=== PATIENT | male | born 1950 | race Caucasian/White ===

== ENCOUNTER 2019-12-10 15:58 | Outpatient (CLI) | payer MEDICARE, SELFPAY ==
--- NOTE | ~2019-12-10 | CT_ITS ---
EXAMINATION: CT lung screening EXAM DATE: 12/10/2019 16:32 INDICATION: Personal history of nicotine dependence. TECHNIQUE: Spiral low dose CT of the chest without contrast. Axial, coronal and sagittal images were reviewed. The dose-length product (DLP) for this examination was 136.04 mGy-cm. The exposure was t ailored according to patient size (auto mA exposure control), and iterative reconstruction (ASIR) was used as additional dose reduction technique. There is no prior study for comparison. FINDINGS: The lungs are clear. Tracheobronchial tree is patent. There is no mediastinal, hilar o r axillary lymphadenopathy. There are no pleural or pericardial effusions. There is no pneumothor ax. Heart normal in size. There is mild coronary arterial calcification, arterial sclerosis. Bernardo ateral adrenal adenomas. Fluid density lesion superior pole left kidney measuring 3.7 cm consistent w ith cyst. Cholecystectomy clips. Probable Niesen fundoplication. There is mild thoracic spondylosis without osteoblastic or osteolytic lesions identified. Cervical fusion hardware. IMPRESSION: Lung-RADS category 1, negative (<1%chance of malignancy); recommend continued LDCT screen ing in 1 year. > Reviewed, dictated and finalized at location A. 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 >
== END 2019-12-10 15:59 | disposition home or self-care (01) ==
LOC: ANHIMG 16:01
PROVIDERS: PCP Nurse Practitioner; Visit Provider Nurse Practitioner
DX: Z12.2 Encounter for screening for malignant neoplasm of respiratory organs (principal); Z87.891 Personal history of nicotine dependence
CPT/HCPCS: G0297

== ENCOUNTER → 2020-04-20 15:14 | Outpatient (CLI) | payer MEDICARE, SELFPAY ==
--- NOTE | ~2020-04-20 | MR_ITS ---
EXAMINATION: MR cervical spine wo con DATE: 04/20/2020 16:14 INDICATION: Left arm pain. TECHNIQUE: Magnetic resonance imaging (MRI) of the cervical spine was performed without intravenous c ontrast. Sequences included sagittal T2-weighted FSE, sagittal STIR FSE, sagittal T1-weighted FSE, ax ial MERGE, and axial T2-weighted FSE. COMPARISON: None FINDINGS: There is 2 mm anterolisthesis of C3 on C4 and 2 mm retrolisthesis of C4 on C5. Vertebral jorge dy heights are normal. There are changes of anterior fusion procedure at C6-C7 with healed interbody bone graft and anterior plate and screws. There is moderately decreased disc height at C4-C5. The spi nal cord signal intensity is normal. The following disc levels are specifically discussed: C2-C3: The disc does not extend beyond the endplate margin. There is mild bilateral uncovertebral nasim nt osteoarthritis. There is mild bilateral facet joint osteoarthritis. There is mild right neural for aminal stenosis. There is no central canal stenosis. C3-C4: There is a central extrusion. There is mild bilateral uncovertebral joint osteoarthritis. Ther e is mild right and severe left facet joint osteoarthritis. There is mild right and moderate left herbert ral foraminal stenosis. There is mild central canal stenosis. C4-C5: The disc is bulging with superimposed right central extrusion. There is moderate bilateral unc overtebral joint osteoarthritis. There is moderate right and mild left facet joint osteoarthritis. Th ere is moderate bilateral neural foraminal stenosis. There is moderate central canal stenosis with ve ntral and dorsal indentation of spinal cord. C5-C6: The disc is bulging with superimposed right central extrusion. There is no uncovertebral joint osteoarthritis. There is mild right and severe left facet joint osteoarthritis. There is mild left n eural foraminal stenosis. There is mild central canal stenosis with ventral indentation of spinal cor d. C6-C7: There is mild bilateral uncovertebral joint hypertrophy. There is mild bilateral facet joint o steoarthritis. There is mild right neural foraminal stenosis. There is no central canal stenosis. C7-T1: The disc does not extend beyond the endplate margin. There is no uncovertebral joint osteoarth ritis. There is severe right and mild left facet joint osteoarthritis. There is mild right neural for aminal stenosis. There is no central canal stenosis. IMPRESSION: 1. Moderate cervical spondylosis. 2. Anterior fusion procedure at C6-C7. Reviewed, dictated and finalized at location A.
== END ==
PROVIDERS: Visit Provider Clinical Nurse Specialist
DX: M79.602 Pain in left arm (principal); M47.892 Other spondylosis, cervical region; Z98.1 Arthrodesis status
CPT/HCPCS: 72141

== ENCOUNTER 2020-06-09 14:00 | Outpatient (CLI) | payer MEDICARE, SELFPAY ==
--- NOTE | ~2020-06-09 | CT_ITS ---
EXAMINATION: CT abdomen pelvis wo/w con DATE: 06/09/2020 14:46 INDICATION: Status post stent for abdominal aortic dissection TECHNIQUE: Computed tomography (CT) of the abdomen was performed without and subsequently with 100 cc Omnipaque 350 intravenous contrast. Automated exposure control and iterative reconstruction technique were employed. Exam dose: 1154.77 mGy-cm total exam DLP. COMPARISON: None. FINDINGS: The lung bases are clear of infiltrate or consolidation. Normal heart size. Coronary artery calcifications. No pericardial or pleural effusion. Small sliding hiatal hernia. Surgical clips adjacent to the very proximal stomach. Status post cholecystectomy. No hepatic or splenic space-occupying mass lesion is evident. No bile duct dilatation. Pancreas and calcifications consistent with chronic pancreatitis. No pancreatic mass lesion or ductal dilatation is detected. There are bilateral low attenuation adrenal masses, measuring approximately 17 mm on the right, 19 mm on the left. In the absence of any known primary malignancy, these are likely adrenal adenomas. 4 x 4.3 cm upper pole left renal cyst. Additional occasional bilateral smaller renal cysts. No urinary tract calculus or hydroureteronephrosis is evident. There is an infrarenal abdominal aortic endovascular stent there is atherosclerotic calcification of the abdominal aorta and at the origins of the celiac and superior mesenteric and both renal arteries as well as the common iliac arteries. Mild residual distal abdominal aortic dissection is noted beyond the aortic endovascular stent. Arterial dissections are noted in the proximal common iliac arteries, more prominent on the left. No intraperitoneal or retroperitoneal mass lesion or adenopathy or ascites is evident. Mild colonic diverticulosis; no bowel obstruction or intraperitoneal free air is detected. Bilateral L5 pars interarticularis defects with anterolisthesis at L5-S1. IMPRESSION: Small sliding hiatal hernia Status post cholecystectomy Chronic pancreatitis Probable bilateral adrenal adenomas Bilateral renal cysts Infrarenal abdominal aortic endovascular stent Minimal distal abdominal aortic dissection and bilateral left greater than right common iliac artery dissection Mild colonic diverticulosis Bilateral L5 spondylolysis with associated spondylolisthesis at L5-S1 Reviewed, dictated and finalized at Location A. Reviewed, dictated and finalized at location A. MTDD IMPRESSION: Small sliding hiatal hernia Status post cholecystectomy Chronic pancreatitis Probable bilateral adrenal adenomas Bilateral renal cysts Infrarenal abdominal aortic endovascular stent Minimal distal abdominal aortic dissection and bilateral left greater than righ t common iliac artery dissection Mild colonic diverticulosis Bilateral L5 spondylolysis with associated spondylolisthesis at L5-S1
[2020-06-09 14:36] LABS: Estimated Glomerular Filt Rate > 60
== END 2020-06-09 14:01 | disposition home or self-care (01) ==
PROVIDERS: PCP Internal Medicine Cardiovascular Disease; Visit Provider Internal Medicine Cardiovascular Disease
DX: I71.02 Dissection of abdominal aorta (principal)
CPT/HCPCS: 74170; 74178; Q9967

== ENCOUNTER 2020-10-13 16:08 | Outpatient (CLI) | payer MEDICARE, SELFPAY ==
--- NOTE | ~2020-10-13 | MR_ITS ---
EXAMINATION: MR lumbar spine wo [facility] EXAM DATE: 10/13/2020 17:01 INDICATION: Low back pain. TECHNIQUE: Multi-sequential, multiplanar MR images of the lumbar spine were obtained without contrast . Sagittal T1, T2, T2 fat saturation images. Axial T2 weighted images. There is no prior study for comparison. FINDINGS: There is chronic bilateral L5 spondylolysis with 6 cm anterolisthesis L5 on S1. There is 2 mm retrolisthesis L4 on L5. Moderate L5-S1 disc disease, mild at the other thoracolumbar levels image d. The conus medullaris terminates at the L1/2 level and has normal signal intensity and morphology. There are no focal marrow signal abnormalities suspicious for malignancy or acute fracture. Paraspin al soft tissue is unremarkable. Level by level evaluation: T12-L1: Disc does not extend beyond the endplate margin. Facet arthropathy: None. Neural foraminal stenosis: No stenosis. Central canal stenosis: No stenosis. L1-L2: There is a mild diffuse disc bulge. Facet arthropathy: Mild. Neural foraminal stenosis: No stenosis. Central canal stenosis: No stenosis. L2-L3: There is a mild diffuse disc bulge. Facet arthropathy: Mild. Neural foraminal stenosis: Mild bilateral. Central canal stenosis: No stenosis. L3-L4: There is a mild to moderate diffuse disc bulge. Facet arthropathy: Mild. Neural foraminal stenosis: Mild bilateral. Central canal stenosis: No stenosis. L4-L5: There is a mild to moderate diffuse disc bulge. Facet arthropathy: Moderate right, mild left. Neural foraminal stenosis: Moderate right, mild to moderate left. Central canal stenosis: No stenosis. L5-S1: There is a moderate diffuse disc bulge. Facet arthropathy: Mild. Neural foraminal stenosis: Moderate to severe right, moderate left. Central canal stenosis: Mild. IMPRESSION: 1. L5 chronic bilateral spondylolysis, grade 1 anterolisthesis, moderate disc disease. 2. Lower lumbar predominant spondylosis as above. Reviewed, dictated and finalized at location A. 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
== END 2020-10-13 16:09 | disposition home or self-care (01) ==
PROVIDERS: PCP Internal Medicine; Visit Provider Nurse Practitioner
DX: M47.896 Other spondylosis, lumbar region (principal)
CPT/HCPCS: 72148

== ENCOUNTER 2021-02-03 12:12 | Outpatient (CLI) | payer MEDICARE, SELFPAY ==
--- NOTE | ~2021-02-03 | CT_ITS ---
EXAMINATION:CT lung screening DATE: 02/03/2021 12:49 INDICATION: Personal history of tobacco dependence. Current smoker with 30 pack year history. TECHNIQUE: Computed tomography (CT) of the chest was performed without intravenous contrast. Automate d exposure control and iterative reconstruction technique were employed. The dose-length product (DLP ) was 207.33 mGy-cm. COMPARISON: Chest CT 12/10/2019 FINDINGS: There is mild emphysema. Calcified left lung nodules and calcified left hilar and mediastin al lymph nodes are consistent with old granulomatous disease. No pleural effusion. The heart size is normal. There are coronary artery calcifications. No pericardial effusion. There are calcifications i n the pancreas, consistent with chronic pancreatitis. There is a 4.9 cm cyst of left kidney. There ar e changes of anterior fusion procedure in cervical spine. IMPRESSION: 1. Lung-RADS category 1: Negative. Continue annual screening with noncontrast low-dose chest CT in 12 months. Reviewed, dictated and finalized at location A. IMPRESSION: 1. Lung-RADS category 1: Negative. Continue annual screening with noncontrast l ow-dose chest CT in 12 months.
== END 2021-02-03 12:13 | disposition home or self-care (01) ==
PROVIDERS: PCP Internal Medicine; Visit Provider Clinical Nurse Specialist
DX: Z87.891 Personal history of nicotine dependence (principal)
CPT/HCPCS: 71271

== ENCOUNTER 2021-02-17 18:05 | Emergency (ER) | payer MEDICARE, SELFPAY ==
[2021-02-17] VITALS (30 sets, daily range): BP systolic 81–139; BP diastolic 57–91; PULSE 58–74; RESP 16–29; TEMP 36.9; O2SAT 94–98
--- NOTE | ~2021-02-17 | CT_ITS ---
EXAMINATION: CT abdomen pelvis w con EXAM DATE: 02/17/2021 19:57 INDICATION: Left upper abdominal pain. History kidney stone. TECHNIQUE: Spiral CT of the abdomen and pelvis was performed following intravenous injection of 100 m L Omnipaque 350. Axial, coronal and sagittal images of the abdomen and pelvis were reviewed. The do se-length product (DLP) for this examination was 1151.33 mGy-cm. The exposure was tailored according to patient size (auto mA exposure control), and iterative reconstruction (ASIR) was used as addition al dose reduction technique. Comparison is made to prior examination from 06/09/2020. FINDINGS: Bilateral adrenal adenomas up to about 2 cm. Pancreatic calcifications, chronic pancreatiti s. The liver, spleen, adrenal glands and pancreas are otherwise unremarkable. There are cholecystec liliana clips. The portal vein measures up to 2.2 cm in diameter, could indicate portal hypertension. No liver surface nodularity. Portal and splenic veins are patent. Kidneys enhance symmetrically. The re is no hydronephrosis. Exophytic left renal cyst measuring 4.4 cm. Mild prostatomegaly. The bladd er is unremarkable. There is no retroperitoneal or pelvic lymphadenopathy. Abdominal aortic stent, a marvin is normal in caliber. There is moderate scattered arteriosclerotic disease. The appendix is not positively visualized. There is no pericecal inflammatory change to suggest appe ndicitis. There is moderate sigmoid colonic diverticulosis. There is no adjacent inflammatory change to suggest diverticulitis. Surgical changes consistent with Niesen fundoplication. There is expecte d amount of colonic stool. No free intraperitoneal gas. The heart is normal in size. There are n o pericardial or pleural effusions. The lung bases are unremarkable. Chronic L5 spondylolysis with grade 1 anterolisthesis L5 on S1. There are no osteoblastic or osteolytic lesions identified. IMPRESSION: 1. No acute intra-abdominal findings or interval change. 2. Dilated portal vein, could indicate portal hypertension. 3. Chronic pancreatitis. 4. Moderate sigmoid diverticulosis. 5. Chronic L5 spondylolysis, grade 1 anterolisthesis. 6. Surgical changes. Reviewed, dictated and finalized at location A.
--- NOTE | 2021-02-17 18:36 | ECG_ITS ---
Measurements Intervals [place] Rate: 63 P: 32 VT: 187 QRS: 5 QRSD: 103 T: 40 QT: 425 QTc: 436 Interpretive Statements SINUS RHYTHM VENTRICULAR PREMATURE COMPLEX INCOMPLETE RIGHT BUNDLE BRANCH BLOCK DELAYED PRECORDIAL R/S TRANSITION BASELINE ARTIFACT- I, II, III, AVR, AVF, V1-V6 BORDERLINE ECG Electronically Signed On 02-18-2021 6:40:18 CDT by Arnie Mercer D.O.
[2021-02-17] MEDS: SODIUM CHLORIDE 0.9% IV 1,000 ML 999 ML IV CONT (18:55)
--- NOTE | 2021-02-17 19:13 | ED.GENADULT ---
HPI - General Adult General Chief complaint: Back Pain/Injury Stated complaint: abd pain, tingling Time Seen by Provider: 02/17/21 18:23 History of Present Illness HPI narrative: Patient is a 71-year-old male who presents ER with abdominal pain and syncope. Patient reports he was at home talking to his [id number] when he started having crampy upper abdominal pain. He decided to go into the bathroom because he thought he needed use of a bowel movement. Reports he did not have a bowel movement but then he began to feel tingly all over. He reports his told him that he lost consciousness but he is unsure if this is true. He is still having some abdominal cramping. Reports history of endovascular repair of a AAA several years back. Reports he had some mild chest discomfort that may have been related to the pressure in his abdomen. This is since gone away. No nausea/vomiting. Related Data Home Medications Medication Instructions Recorded Confirmed cyanocobalamin (vitamin B-12) 1,000 mcg PO DAILY 12/04/19 01/07/21 1,000 mcg capsule dapagliflozin 10 mg tablet 10 mg PO DAILY 12/04/19 01/07/21 fenofibrate micronized 134 mg 134 mg PO DAILY 12/04/19 01/07/21 capsule ranolazine 1,000 mg 1,000 mg PO Q12H 12/04/19 01/07/21 tablet,extended release,12 hr aspirin 81 mg tablet,delayed 81 mg PO DAILY 06/08/20 01/07/21 release alfuzosin 10 mg tablet,extended 20 mg PO BID tablet 01/07/21 01/07/21 release 24 hr Allergies Allergy/AdvReac Type Severity Reaction Status Date / Time No Known Allergies Allergy Verified 10/07/20 14:03 Review of Systems Review of Systems: All systems reviewed & are unremarkable except as noted in HPI and below Constitutional: Constitutional: Denies chills, Denies fever(s) and Denies weakness Cardiovascular: Cardiovascular: Reports chest pain, Denies rapid heart rate and Denies radiating jaw, neck or arm pain Gastrointestinal: Gastrointestinal: Reports abdominal pain, Reports bloating, Denies constipation, Denies diarrhea, Denies nausea and Denies vomiting Genitourinary: Genitourinary: Denies dysuria and Denies urinary frequency Neurologic: Reports syncope, Denies headache(s), Denies focal weakness and Denies numbness PMFSH Past Medical History Medical History (Updated 02/17/21 @ 23:11 by El Edmondson MD) Appendix injury Removed Arthritis Atrial fibrillation Back pain Cholecystectomy planned Depression Diabetes GERD (gastroesophageal reflux disease) H/O: HTN (hypertension) Headache Hearing loss Hypertension Lumbar stenosis Neck fracture Neck injury Surgical History Surgical History H/O heart artery stent History of appendectomy History of cholecystectomy Hx of endovascular stent graft for abdominal aortic aneurysm Abdominal aorta stent: Cordis Family History Family History Mother Diabetes mellitus Father Lung cancer Stomach cancer Grandparent Heart disease Cerebrovascular accident Sibling Brain tumor Brain bleed Other Alcoholism Renal failure Social History Social History Smoking packs per day: 0.5 Smoking cigarettes per day: 10.0 Smoking status: Current every day smoker Tobacco type: cigarettes Smokeless tobacco user: chewing tobacco Alcohol intake: never Exam Narrative: Exam Narrative: GENERAL: Well-appearing, well-nourished, and in no acute distress. HEAD: Normocephalic, atraumatic. ENT: Mucous membranes moist. CHEST: Clear to auscultation. No respiratory distress. HEART: Regular rate and rhythm. Normal peripheral pulses. ABDOMEN: Soft, mild epigastric and left upper quadrant abdominal tenderness without guarding, nondistended, normal active bowel sounds. EXTREMITIES: Normal range of motion. No edema. SKIN: Warm, dry, no rash. NEURO: Alert and oriented x3. PS
[2021-02-17 19:25] LABS: Basophils Percent Auto 0.3 % (0.2-1.2); Eosinophils Absolute Auto 0.1 K/mm3 (0-0.3); Eosinophils Percent Auto 0.4 % (0-4.4); Hematocrit 39.5 % (42.0-52.0); Hemoglobin 13.3 g/dL (14.0-18.0); Immature Granulocyte Absolute 0.06 K/mm3 (0.00-0.031); Immature Granulocyte Percent A 0.4 % (0-0.5); Lymphocytes Percent Auto 12.5 % (18.3-44.2); Mean Corpuscular HGB Conc 33.7 g/dl (32-36); Mean Corpuscular Hemoglobin 30.6 pg (26-34); Mean Corpuscular Volume 90.8 fl (80-100); Monocytes Absolute Auto 0.8 K/mm3 (0.1-0.6); Monocytes Percent Auto 5.5 % (2.6-8.5); Neutrophils Percent Auto 80.9 % (45.5-73.1); Platelet Count Result 226 k/mm3 (150-375); Red Blood Count 4.35 M/mm3 (4.6-6.20); Red Cell Distribution Width 13.4 % (11.5-14.5); White Blood Count 13.6 K/mm3 (4.5-10.0)
[2021-02-17 19:34] LABS: Prothrombin Time 14.2 Seconds (11.1-14.7)
[2021-02-17 19:35] LABS: Anion Gap 6 mmol/L (8-16); Blood Urea Nitrogen 36 mg/dL (9-20); Calcium 8.6 mg/dL (8.4-10.2); Carbon Dioxide 22 mmol/L (22-30); Chloride 111 mmol/L (98-107); Estimated CRCL calculation 48 ml/min; Estimated Glomerular Filt Rate 50; Glucose 141 mg/dL (75-110); Partial Thromboplastin Time 28.4 SECONDS (22.3-36.8); Potassium 4.8 mmol/L (3.4-5.0); Sodium 139 mmol/L (137-145)
[2021-02-17 19:46] LABS: Troponin I < 0.012 ng/mL (0.000-0.034)
[2021-02-17 20:18] LABS: Add Urine Microscopic? YES; Appearance Urine Clear (Clear); Bilirubin Urine Negative (Negative); Blood Urine Negative (Negative); Color Urine Yellow (Yellow); Glucose Urine UA 3+ mg/dL (Negative); Ketones Urine Negative (Negative); Leukocyte Esterase Ur Negative LEU/UL (Negative); Mucus Urine Rare /lpf; Nitrate Urine Negative (Negative); Protein Urine 2+ mg/dL (Negative); RBC Urine 0-2 /hpf (0-2); Specific Grav Ur 1.029 (1.001-1.035); Urobilinogen Urine Negative mg/dL (<2.0); WBC Urine 0-3 /hpf
[2021-02-17 22:32] LABS: Troponin I < 0.012 ng/mL (0.000-0.034)
== END 2021-02-17 23:20 | disposition home or self-care (01) ==
PROVIDERS: Emergency Provider Emergency Medicine; PCP Internal Medicine
DX: R55 Syncope and collapse (principal); K57.30 Diverticulosis of large intestine without perforation or abscess without bleeding; M47.816 Spondylosis without myelopathy or radiculopathy, lumbar region; F17.210 Nicotine dependence, cigarettes, uncomplicated; M19.90 Unspecified osteoarthritis, unspecified site; I48.91 Unspecified atrial fibrillation; F32.9 Major depressive disorder, single episode, unspecified; E11.9 Type 2 diabetes mellitus without complications; K21.9 Gastro-esophageal reflux disease without esophagitis; I10 Essential (primary) hypertension
CPT/HCPCS: 36415; 74177; 80048; 81001; 84484; 85025; 85610; 85730; 93005; 96360; 99284; J7030; Q9967

== ENCOUNTER 2022-04-14 01:11 | Day surgery (SDC) | payer MEDICARE, SELFPAY ==
[2022-04-01 10:40] VITALS: BMI 30.7
[2022-04-14 10:21] LABS: Glucose Point of Care 156 mg/dl (65-105)
[2022-04-14 10:22] VITALS: BP 143/78; PULSE 83; RESP 20; TEMP 36.1; O2SAT 98; BMI 28.3
[2022-04-14] MEDS: LACTATED RINGERS 1,000 ML 150 ML IV CONT (10:22)
--- NOTE | 2022-04-14 10:22 | PM.HPGS ---
History of Present Illness History of Present Illness Consent: Risks, benefits, and alternatives have been discussed and questions answered. Patient agrees to proceed with procedure. Chief complaint: hx of colon polyps Narrative: Kieran Lau is a 72 year old male Referred for colon cancer screening. He has a history of polyps having multiple polyps removed in 2013 and 2017. Review of Systems Review of Systems: All systems reviewed & are unremarkable except as noted in HPI and below PMFSH Past Medical History Medical History Appendix injury Removed Arthritis Atrial fibrillation Back pain Bursitis of elbow Decreased GFR Depression GERD (gastroesophageal reflux disease) Hearing loss Hyperlipidemia Hypertension Lumbar stenosis Neck fracture Neck injury OAB (overactive bladder) Obesity Polyuria Tachycardia Surgical History Surgical History H/O heart artery stent History of AAA (abdominal aortic aneurysm) repair History of appendectomy History of cholecystectomy Hx of endovascular stent graft for abdominal aortic aneurysm Abdominal aorta stent: Cordis Family History Family History Mother Diabetes mellitus Father Lung cancer Stomach cancer Grandparent Heart disease Cerebrovascular accident Sibling Brain tumor Brain bleed Other Alcoholism Renal failure Social History Social History Smoking packs per day: 0.75 Smoking cigarettes per day: 15.0 Years smoked: 50 Smoking pack-years: 37.50 Smoking status: Current every day smoker Tobacco type: cigarettes Smokeless tobacco user: chewing tobacco Alcohol intake: never Substance use: never Substance use type: does not use Living arrangements: with family Spiritual care concerns: No Meds Home Medications and Allergies Home Medications Medication Instructions Recorded Confirmed Type metformin 1,000 mg tablet 1,000 mg PO BID #180 tabs 04/29/20 04/01/22 Rx aspirin 81 mg tablet,delayed 81 mg PO DAILY 06/08/20 04/01/22 History release (Adult Aspirin Regimen) pen needle, diabetic 31 gauge x #25 ea 09/16/20 04/01/22 Rx 5/16 (BD Ultra-Fine Short Pen Needle) blood-glucose meter #1 ea 12/23/20 04/01/22 Rx icosapent ethyl 1 gram capsule 2 g PO BID 03/29/21 04/01/22 History (Vascepa) pen needle, diabetic 32 gauge x #100 ea 03/29/21 04/01/22 Rx (BD Ricarda 2nd Gen Pen Needle) blood sugar diagnostic (OneTouch #200 ea 04/06/21 04/01/22 Rx Ultra Blue Test Strip) empagliflozin 25 mg tablet 25 mg PO QAM 90 days #90 tabs 12/14/21 04/01/22 Rx (Jardiance) lisinopril 2.5 mg tablet 2.5 mg PO DAILY 12/14/21 04/01/22 History metoprolol succinate 25 mg 25 mg PO DAILY 12/14/21 04/01/22 History tablet,extended release 24 hr atorvastatin 20 mg tablet 20 mg PO DAILY #90 tabs 03/03/22 04/01/22 Rx cholecalciferol (vitamin D3) 25 25 mcg PO DAILY 03/08/22 04/01/22 History mcg (1,000 unit) capsule glimepiride 4 mg tablet 4 mg PO BID 03/08/22 04/01/22 History insulin degludec 200 unit/mL (3 10 unit (0.05 mL) subcut DAILY 03/08/22 04/01/22 Rx mL) subcutaneous pen (Tresiba days #4.5 mL FlexTouch U-200 insulin) alfuzosin 10 mg tablet,extended See Rx Instructions .Route 03/14/22 04/01/22 Rx release 24 hr .COMPLEX #90 tabs escitalopram oxalate 10 mg tablet See Rx Instructions .Route 03/14/22 04/01/22 Rx .COMPLEX #90 tabs semaglutide 1 mg/dose (4 mg/3 mL) 1 mg (0.75 mL) subcut WEEKLY 03/29/22 04/01/22 Rx subcutaneous pen injector (Ozempic) days #9 mL sodium sul 1.479 gram-potas ch See Rx Instructions PO PER PKG DIR 03/31/22 04/01/22 Rx 0.188 gram-magnes sul 0.225 gram #24 tabs tablet (Sutab) mirabegron 25 mg tablet,extended See Rx Instructions .Route 04/08/22 04/14/22 Rx releas
--- NOTE | 2022-04-14 10:36 | WPDANESEPPF ---
Anes - Initial Pre Proc Eval Procedure: Operation Date: 04/14/22 11:15 Proposed Procedures p Screening Colonoscopy - Jordi Aguilar MD Date/Time: 04/14/22 10:36 Surgeon: Jordi Aguilar MD Pre Op Diagnosis: hx of colon polyps Patient Data Age: 72 Gender: M Height: 1.8 m Weight: 92.2 kg Last Vital Signs Temp 96.9 F L 04/14/22 10:22 Pulse 83 04/14/22 10:22 Resp 20 04/14/22 10:22 BP 143/78 H 04/14/22 10:22 Pulse Ox 98 04/14/22 10:22 O2 Del Method Room Air 04/14/22 10:22 Allergies Allergy/AdvReac Type Severity Reaction Status Date / Time No Known Allergies Allergy Verified 04/14/22 10:16 Home Medications Medication Instructions Recorded Confirmed Type metformin 1,000 mg tablet 1,000 mg PO BID #180 tabs 04/29/20 04/01/22 Rx aspirin 81 mg tablet,delayed 81 mg PO DAILY 06/08/20 04/01/22 History release (Adult Aspirin Regimen) pen needle, diabetic 31 gauge x #25 ea 09/16/20 04/01/22 Rx 5/16 (BD Ultra-Fine Short Pen Needle) blood-glucose meter #1 ea 12/23/20 04/01/22 Rx icosapent ethyl 1 gram capsule 2 g PO BID 03/29/21 04/01/22 History (Vascepa) pen needle, diabetic 32 gauge x #100 ea 03/29/21 04/01/22 Rx 5/32 (BD Ricarda 2nd Gen Pen Needle) blood sugar diagnostic (OneTouch #200 ea 04/06/21 04/01/22 Rx Ultra Blue Test Strip) empagliflozin 25 mg tablet 25 mg PO QAM 90 days #90 tabs 12/14/21 04/01/22 Rx (Jardiance) lisinopril 2.5 mg tablet 2.5 mg PO DAILY 12/14/21 04/01/22 History metoprolol succinate 25 mg 25 mg PO DAILY 12/14/21 04/01/22 History tablet,extended release 24 hr atorvastatin 20 mg tablet 20 mg PO DAILY #90 tabs 03/03/22 04/01/22 Rx cholecalciferol (vitamin D3) 25 25 mcg PO DAILY 03/08/22 04/01/22 History mcg (1,000 unit) capsule glimepiride 4 mg tablet 4 mg PO BID 03/08/22 04/01/22 History insulin degludec 200 unit/mL (3 10 unit (0.05 mL) subcut DAILY 03/08/22 04/01/22 Rx mL) subcutaneous pen (Tresiba days #4.5 mL FlexTouch U-200 insulin) alfuzosin 10 mg tablet,extended See Rx Instructions .Route 03/14/22 04/01/22 Rx release 24 hr .COMPLEX #90 tabs escitalopram oxalate 10 mg tablet See Rx Instructions .Route 03/14/22 04/01/22 Rx .COMPLEX #90 tabs semaglutide 1 mg/dose (4 mg/3 mL) 1 mg (0.75 mL) subcut WEEKLY 03/29/22 04/01/22 Rx subcutaneous pen injector (Ozempic) days #9 mL sodium sul 1.479 gram-potas ch See Rx Instructions PO PER PKG DIR 03/31/22 04/01/22 Rx 0.188 gram-magnes sul 0.225 gram #24 tabs tablet (Sutab) mirabegron 25 mg tablet,extended See Rx Instructions .Route 04/08/22 04/14/22 Rx release 24 hr (Myrbetriq) .COMPLEX #90 tabs Laboratory Tests 04/14/22 10:19 POC Capillary Glucose 156 mg/dl H mg/dl (65-105) Patient hx anesthesia problems: none Family hx anesthesia problems: none Results Review: All pre-operative results and documents have been reviewed as part of the pre-operative evaluation. [facility] Past Medical History Medical History Appendix injury Removed Arthritis Atrial fibrillation Back pain Bursitis of elbow Decreased GFR Depression GERD (gastroesophageal reflux disease) Hearing loss Hyperlipidemia Hypertension Lumbar stenosis Neck fracture Neck injury OAB (overactive bladder) Obesity Polyuria Tachycardia Surgical History Surgical History H/O heart artery stent History of AAA (abdominal aortic aneurysm) repair History of appendectomy History of cholecystectomy Hx of endovascular stent graft for abdominal aortic aneurysm Abdominal aorta stent: Cordis Family History Family History Mother Diabetes mellitus Father Lung cancer Stomach cancer Grandparent Heart disease Cerebrovascular accident Sibling Brain tumor Brain bleed Other Alcoholism Renal failure Social Histor
[2022-04-14 11:02] VITALS: BP 113/69; PULSE 73; RESP 18; O2SAT 97
[2022-04-14 11:12] VITALS: BP 123/70; PULSE 71; RESP 18; O2SAT 99
[2022-04-14 11:22] VITALS: BP 122/72; PULSE 82; RESP 20; O2SAT 99
== END 2022-04-14 11:25 | disposition home or self-care (01) ==
PROVIDERS: PCP Internal Medicine; Visit Provider Internal Medicine Gastroenterology
PROC: 0DJD8ZZ Inspection of Lower Intestinal Tract, Via Natural or Artificial Opening Endoscopic (ICD-10-PCS; CPT 45378; principal; 2022-04-14 11:15)
DX: Z12.11 Encounter for screening for malignant neoplasm of colon (principal); D12.8 Benign neoplasm of rectum; K64.8 Other hemorrhoids; K57.30 Diverticulosis of large intestine without perforation or abscess without bleeding; Z86.010 Personal history of colon polyps; I48.91 Unspecified atrial fibrillation; K21.9 Gastro-esophageal reflux disease without esophagitis; E78.5 Hyperlipidemia, unspecified; I10 Essential (primary) hypertension; Z95.5 Presence of coronary angioplasty implant and graft; F17.210 Nicotine dependence, cigarettes, uncomplicated; Z79.82 Long term (current) use of aspirin; Z79.4 Long term (current) use of insulin; E11.9 Type 2 diabetes mellitus without complications
CPT/HCPCS: 45385; 82948; 88305; J2704; J7120

== ENCOUNTER 2022-05-10 14:47 | Outpatient (CLI) | payer MEDICARE, SELFPAY ==
[2022-05-10 20:01] LABS: Basophils Absolute Auto 0.1 K/mm3 (0.0-0.1); Basophils Percent Auto 0.4 % (0.2-1.2); Eosinophils Absolute Auto 0.1 K/mm3 (0-0.3); Eosinophils Percent Auto 0.8 % (0-4.4); Hemoglobin 14.9 g/dL (14.0-18.0); Immature Granulocyte Absolute 0.05 K/mm3 (0.00-0.031); Immature Granulocyte Percent A 0.4 % (0-0.5); Lymphocytes Absolute Auto 2.66 K/mm3 (0.9-3.2); Lymphocytes Percent Auto 22.3 % (18.3-44.2); Mean Corpuscular HGB Conc 32.4 g/dl (32-36); Mean Corpuscular Hemoglobin 29.8 pg (26-34); Mean Platelet Volume 11.6 fl (7.4-10.4); Monocytes Absolute Auto 0.9 K/mm3 (0.1-0.6); Monocytes Percent Auto 7.2 % (2.6-8.5); Neutrophils Absolute Auto 8.2 K/mm3 (1.3-6.7); Neutrophils Percent Auto 68.9 % (45.5-73.1); Platelet Count Result 285 k/mm3 (150-375); White Blood Count 11.9 K/mm3 (4.5-10.0)
[2022-05-10 20:19] LABS: Alanine Aminotransferase 73 U/L (6-50); Albumin Level 4.3 g/dL (3.5-5.1); Alkaline Phosphatase 82 U/L (38-126); Anion Gap 12 mmol/L (8-16); Aspartate Amino Transferase 53 U/L (17-59); Bilirubin,Total 0.7 mg/dL (0.2-1.3); Blood Urea Nitrogen 23 mg/dL (9-20); Calcium 9.6 mg/dL (8.4-10.2); Carbon Dioxide 24 mmol/L (22-30); Chloride 105 mmol/L (98-107); Estimated Glomerular Filt Rate > 60; Glucose 114 mg/dL (65-110); Potassium 4.1 mmol/L (3.4-5.0); Sodium 141 mmol/L (137-145)
[2022-05-10 20:20] LABS: Iron 65 ug/dL (49-181)
[2022-05-10 20:38] LABS: Percent Iron Saturation 18 % (20-50)
== END 2022-05-10 14:48 | disposition home or self-care (01) ==
LOC: ANHGOSHLAB 14:49
PROVIDERS: PCP Internal Medicine; Visit Provider Clinical Nurse Specialist
DX: E11.9 Type 2 diabetes mellitus without complications (principal); D64.9 Anemia, unspecified
CPT/HCPCS: 36415; 71046; 80053; 82728; 83540; 83550; 85025

== ENCOUNTER 2022-05-10 16:30 | Outpatient (CLI) | payer MEDICARE, SELFPAY ==
--- NOTE | ~2022-05-10 | XR_ITS ---
EXAMINATION: XR chest 2V Exam Date/Time: 05/10/2022 17:00 CDT HISTORY: D72.829 - Elevated white blood cell count, unspecified Comparison: None available. RESULT: Lines, tubes, and devices: Lower cervical fusion hardware. Lungs and pleura: Mild hyperinflation and diaphragm flattening. Senescent changes. Cardiomediastinal silhouette: Aortic arch calcification. Other: No acute osseous or upper abdominal finding. IMPRESSION: No acute cardiopulmonary process. Emphysematous change. Reviewed, dictated and finalized at location K.
== END 2022-05-10 16:31 | disposition home or self-care (01) ==
PROVIDERS: PCP Internal Medicine; Visit Provider Clinical Nurse Specialist
DX: D72.829 Elevated white blood cell count, unspecified (principal); Z72.0 Tobacco use
CPT/HCPCS: 71046

== ENCOUNTER 2022-05-18 08:22 | Outpatient (CLI) | payer MEDICARE, SELFPAY ==
--- NOTE | ~2022-05-18 | CT_ITS ---
EXAMINATION: CT lung screening DATE: 05/18/2022 08:59 INDICATION: Personal history of tobacco dependence TECHNIQUE: Computed tomography (CT) of the chest was performed without intravenous contrast. The dose -length product was 133.41 mGy-cm. Automated exposure control and iterative reconstruction technique were employed. COMPARISON: CT dated 02/03/2021 FINDINGS: No significant pleural or pericardial effusion. There is 4.5 cm left renal cyst. There are cholecystectomy clips. There is atherosclerosis of the aorta and coronary arteries. Heart size is nor mal. No thoracic lymphadenopathy. Calcified granuloma left upper lobe. Mild emphysema. There is anter ior fusion of the cervical spine. No endobronchial lesions. No pneumothorax. Mild thoracic spondylosi s. IMPRESSION: 1. Lung-RADS category 1: Negative. Continue annual screening with noncontrast low-dose chest CT in 12 months. Reviewed, dictated and finalized at location A. IMPRESSION: 1. Lung-RADS category 1: Negative. Continue annual screening with noncontrast l ow-dose chest CT in 12 months.
== END 2022-05-18 08:23 | disposition home or self-care (01) ==
PROVIDERS: PCP Internal Medicine; Visit Provider Clinical Nurse Specialist
DX: Z12.2 Encounter for screening for malignant neoplasm of respiratory organs (principal); Z87.891 Personal history of nicotine dependence
CPT/HCPCS: 71271

== ENCOUNTER → 2022-09-05 12:19 | Outpatient (CLI) | payer MEDICARE, SELFPAY ==
--- NOTE | ~2022-09-05 | XR_ITS ---
XR lumbar spine 2-3V DATE: 09/05/2022 12:48 INDICATION: Low back pain TECHNIQUE: AP, lateral and coned lateral lumbosacral views COMPARISON: 10/13/2020 MRI lumbar spine FINDINGS: There is diffuse osteopenia. There is mild levoscoliosis of the lumbar spine. Included lower thoracic and lumbar pedicles appear intact. No fracture or bone destruction of the lum bar spine is noted (chronic bilateral L5 pars intraarticularis defects noted on 10/23/2020 MRI lumbar spine and 02/17/2021 CT abdomen pelvis examination. There is associated grade 1 anterolisthesis at L5- S1. There is mild degenerative disc disease of the lumbar spine moderate degenerative disc disease at L5- S1. The sacroiliac joints are intact. Status post cholecystectomy. Abdominal aortic stent. IMPRESSION: Bilateral L5 pars interarticularis defects with associated grade 1 anterolisthesis at L5- S1 Mild degenerative disc disease of the lumbar interspaces and moderately prominent degenerative diseas e at L5-S1 Osteopenia Abdominal aortic stent Status post cholecystectomy Reviewed, dictated and finalized at location B. GER SCHEDULING IMPRESSION: Bilateral L5 pars interarticularis defects with associated grade 1 anterolisthesis at L5-S1 Mild degenerative disc disease of the lumbar interspaces and moderately promine nt degenerative disease at L5-S1 Osteopenia Abdominal aortic stent Status post cholecystectomy
--- NOTE | ~2022-09-05 | XR_ITS ---
XR hip RT min 2V DATE: 09/05/2022 12:48 INDICATION: Right hip pain TECHNIQUE: AP, lateral and crosstable lateral views of right hip COMPARISON: 02/17/2021 CT abdomen pelvis FINDINGS: No fracture or dislocation, avascular necrosis or bone destruction of the right hip. Mild r ight hip osteoarthritis. Pubic symphysis and right sacroiliac joint are intact. IMPRESSION: Mild right hip osteoarthritis Reviewed, dictated and finalized at location B. [employer]
== END ==
PROVIDERS: PCP Nurse Practitioner; Visit Provider Nurse Practitioner
DX: M16.11 Unilateral primary osteoarthritis, right hip (principal); M51.36 Other intervertebral disc degeneration, lumbar region; M85.88 Other specified disorders of bone density and structure, other site; Z90.49 Acquired absence of other specified parts of digestive tract
CPT/HCPCS: 72100; 73502

== ENCOUNTER 2022-09-17 18:11 | Observation (INO) | payer MEDICARE, SELFPAY ==
--- NOTE | ~2022-09-17 | US_ITS ---
EXAMINATION: US biopsy liver DATE: 09/19/2022 14:46 INDICATION: Liver mass. TECHNIQUE: The procedure including the risks, benefits, and alternatives was discussed with the patie nt. Risks discussed included bleeding and infection. The patient understood the risks and agreed to p roceed. The skin overlying the liver was prepped and draped in usual sterile fashion. Anesthetic was administered with 1% lidocaine subcutaneously. An 18 gauge core biopsy needle was then used to obta in 4 core biopsy specimens under continuous sonographic guidance. The entry site was cleaned and dres sed. There were no immediate complications. FINDINGS: Ultrasound images demonstrate the needle in a 2.3 cm hypoechoic targetoid mass in left hepa tic lobe. Numerous liver masses are noted. IMPRESSION: 1. Ultrasound-guided core needle biopsy of a liver mass. Reviewed, dictated and finalized at location A. PRACTIC PHYSICIAN
--- NOTE | ~2022-09-17 | CT_ITS ---
EXAMINATION: CT brain wo con DATE: 09/18/2022 01:39 INDICATION: Dizziness. Weakness. TECHNIQUE: Computed tomography (CT) of the head was performed without intravenous contrast. The mA wa s adjusted according to patient size. Iterative reconstruction technique was employed. The dose-lengt h product was 681.00 mGy-cm. COMPARISON: None FINDINGS: There are scattered areas of low attenuation in the cerebral white matter. There is an old infarct in right frontal lobe. There is no intracranial hemorrhage, acute infarction, or abnormal int racranial mass lesion. The ventricles are normal in size. The orbits are normal. There is mild mucosa l thickening in the paranasal sinuses. The mastoid air cells are normal. IMPRESSION: 1. 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 2. Extensive nonspecific cerebral white matter disease, which likely represents chronic small vessel ischemic disease. Reviewed, dictated and finalized at location A. GER ALLIANCE
--- NOTE | ~2022-09-17 | CT_ITS ---
EXAMINATION: CT abdomen pelvis w con DATE: 09/18/2022 00:39 INDICATION: Left upper quadrant abdominal pain. TECHNIQUE: Computed tomography (CT) of the abdomen and pelvis was performed with 100 mL Omnipaque 350 intravenous contrast. Automated exposure control and iterative reconstruction technique were employe d. The dose-length product was 533.77 mGy-cm. COMPARISON: CT abdomen and pelvis 02/17/2021 FINDINGS: The visualized portions of the lung bases are clear without pneumonia or pleural effusion. The heart size is normal. No pericardial effusion. There are greater than 40 masses in the liver luz uring up to 2.4 cm. There are changes of cholecystectomy. The spleen is normal. There are calcificati ons in the pancreas, consistent with chronic pancreatitis. There are chronic adrenal masses bilateral ly measuring up to 2.0 cm on the right, consistent with adenomas. There are cysts in the kidneys luz uring up to 4.6 cm on the left. There is a stent graft in abdominal aorta. Stool distends the rectum. The prostate is moderately enlarged. There is diverticulosis of the colon without evidence of divert iculitis. The appendix is not visualized. There are likely changes of fundoplication of the stomach. There is periportal, aortocaval, paraesophageal, and pericardial lymphadenopathy. There is no free in traperitoneal fluid. There are chronic bilateral L5 pars defects. There is 7 mm anterolisthesis of L5 on S1. There are Schmorl's nodes at multiple levels. A Schmorl's node of superior endplate of L3 is new from 02/17/2021, but likely chronic. There is mild thoracolumbar spondylosis. IMPRESSION: 1. Liver masses and chest and abdominal lymphadenopathy, consistent with metastatic disease. Ultrasou nd-guided core needle biopsy of a liver mass is recommended. Reviewed, dictated and finalized at location A. Y LEVEL ACCOUNTANT IMPRESSION: 1. Liver masses and chest and abdominal lymphadenopathy, consistent with metast atic disease. Ultrasound-guided core needle biopsy of a liver mass is recommend ed.
--- NOTE | ~2022-09-17 | US_ITS ---
EXAMINATION: US right upper quadrant DATE: 09/18/2022 12:46 INDICATION: Abnormal liver function tests. TECHNIQUE: Multiple grayscale and Doppler ultrasound images of the abdomen were obtained. COMPARISON: CT abdomen and pelvis 09/18/2022 FINDINGS: The visualized portion of the head of the pancreas is normal. There are innumerable hypoech oic masses in the liver measuring up to 3.2 cm. There is normal flow in main portal vein. There is pe riportal lymphadenopathy. The gallbladder is absent. The common duct is normal and measures 3 mm . IMPRESSION: 1. Liver masses and periportal lymphadenopathy, consistent with metastatic disease. Ultrasound-guided core needle biopsy of a liver mass is recommended. Reviewed, dictated and finalized at location A. NISTRATIVE OFFICE ASSISTANT IMPRESSION: 1. Liver masses and periportal lymphadenopathy, consistent with metastatic dise ase. Ultrasound-guided core needle biopsy of a liver mass is recommended.
--- NOTE | ~2022-09-17 | XR_ITS ---
EXAMINATION: XR chest 2V DATE: 09/17/2022 21:42 INDICATION: Back pain. Left calf pain. TECHNIQUE: Frontal and lateral views of the chest were obtained. COMPARISON: Chest 2 views 05/18/2022, CT abdomen and pelvis 09/18/2022, chest CT 05/18/2022 FINDINGS: A calcified left lung nodule and calcified left hilar lymph nodes are consistent with old g ranulomatous disease. No pleural effusion or pneumothorax. The heart size is normal. There is widenin g of the mediastinum, consistent with lymphadenopathy. There are changes of anterior fusion procedure in cervical spine. There are are surgical clips in the area of the stomach. IMPRESSION: 1. Mediastinal lymphadenopathy, consistent with metastatic disease. Reviewed, dictated and finalized at location A. OR BUSINESS CONSULTANT
[2022-09-17 18:42] VITALS: BP 157/100; PULSE 110; RESP 17; TEMP 36.1; O2SAT 95
[2022-09-17 21:25] VITALS: BP 141/90; PULSE 99; RESP 20; O2SAT 95
--- NOTE | 2022-09-17 21:26 | ECG_ITS ---
Measurements Intervals [place] Rate: 95 P: -39 LA: 106 QRS: 5 QRSD: 90 T: 60 QT: 328 QTc: 413 Interpretive Statements SINUS RHYTHM WITH OCCASIONAL VENTRICULAR PREMATURE COMPLEXES MINIMAL ST DEPRESSION [0.025+ mV ST DEPRESSION] COMPARED TO ECG 02/17/2021 19:07:28 THERE IS NO DIFFERENCE Electronically Signed On 09-18-2022 8:36:18 SUPERVISOR CELL ROOM by Jim Ware M.D.
[2022-09-17 21:38] LABS: Basophils Absolute Auto 0.1 K/mm3 (0.0-0.1); Basophils Percent Auto 0.7 % (0.2-1.2); Eosinophils Absolute Auto 0.4 K/mm3 (0-0.3); Hematocrit 42.3 % (42.0-52.0); Hemoglobin 14.5 g/dL (14.0-18.0); Immature Granulocyte Absolute 0.86 K/mm3 (0.00-0.031); Immature Granulocyte Percent A 4.9 % (0-0.5); Lymphocytes Absolute Auto 1.93 K/mm3 (0.9-3.2); Lymphocytes Percent Auto 11.1 % (18.3-44.2); Mean Corpuscular HGB Conc 34.3 g/dl (32-36); Mean Corpuscular Volume 87.6 fl (80-100); Mean Platelet Volume 10.8 fl (7.4-10.4); Monocytes Absolute Auto 0.9 K/mm3 (0.1-0.6); Monocytes Percent Auto 5.4 % (2.6-8.5); Neutrophils Absolute Auto 13.2 K/mm3 (1.3-6.7); Neutrophils Percent Auto 75.9 % (45.5-73.1); Nucleated Red Blood Cells Perc 0.1 % (0.0-0.2); Platelet Count Result 209 k/mm3 (150-375); Red Blood Count 4.83 M/mm3 (4.6-6.20); Red Cell Distribution Width 13.4 % (11.5-14.5); White Blood Count 17.4 K/mm3 (4.5-10.0)
[2022-09-17 21:51] LABS: Alanine Aminotransferase 108 U/L (6-50); Albumin Level 4.3 g/dL (3.5-5.1); Alkaline Phosphatase 276 U/L (38-126); Anion Gap 8 mmol/L (8-16); Aspartate Amino Transferase 204 U/L (17-59); Bilirubin,Total 0.7 mg/dL (0.2-1.3); Blood Urea Nitrogen 38 mg/dL (9-20); Calcium 10.5 mg/dL (8.4-10.2); Carbon Dioxide 26 mmol/L (22-30); Chloride 103 mmol/L (98-107); Estimated CRCL calculation 63 ml/min; Estimated Glomerular Filt Rate > 60; Glucose 210 mg/dL (65-110); Potassium 4.9 mmol/L (3.4-5.0); Sodium 137 mmol/L (137-145)
--- NOTE | 2022-09-17 21:51 | PC.NURSE ---
patient here with complaint of back pain increasingly worse over the last 10 days. states it is going down his left leg and causing pain with movement and ambulation
[2022-09-17 22:39] LABS: Lipase 53 U/L (23-300)
--- NOTE | 2022-09-17 22:57 | ED.BACK ---
HPI - Back Pain/Injury General Chief Complaint: Back Pain/Injury Stated Complaint: back pain, increased weakness Time Seen by Provider: 09/17/22 21:49 History of Present Illness HPI Narrative: Patient is a 72-year-old male who presents ER with multiple issues. First issue is back pain. Began around . He has been in contact with his PCP and has been started on tramadol. Symptoms persisted so had outpatient x-rays of his low back as well as his right hip because the pain was moving from his right hip into his back. Arthritis was seen. He was started on Medrol Dosepak. He is still taking the steroid. He is scheduled to see pain management this week. He reports he has had constipation for 8 days. He is passing gas. He has no numbness or tingling in his groin. No lower extremity numbness or weakness. No foot drop. Because of his pain he is started to walk with a cane. Reports he will have some pain that will cause him to lose balance. He is also reporting some left-sided abdominal pain that is nonradiating and cramping in nature. No fevers or chills or sweats. Related Data Home Medications Medication Instructions Recorded Confirmed aspirin 81 mg tablet,delayed 81 mg PO DAILY 06/08/20 09/05/22 release (Adult Aspirin Regimen) icosapent ethyl 1 gram capsule 2 g PO BID 03/29/21 09/05/22 (Vascepa) lisinopril 2.5 mg tablet 2.5 mg PO DAILY 12/14/21 09/05/22 metoprolol succinate 25 mg 25 mg PO DAILY 12/14/21 09/05/22 tablet,extended release 24 hr cholecalciferol (vitamin D3) 25 25 mcg PO DAILY 03/08/22 09/05/22 mcg (1,000 unit) capsule Allergies Allergy/AdvReac Type Severity Reaction Status Date / Time No Known Allergies Allergy Verified 09/05/22 11:36 Review of Systems Review of Systems: All systems reviewed & are unremarkable except as noted in HPI and below Constitutional: Constitutional: Denies chills, Denies fatigue and Denies fever(s) ENT: Denies nasal congestion and Denies sore throat Cardiovascular: Cardiovascular: Denies chest pain, Denies rapid heart rate and Denies radiating jaw, neck or arm pain Respiratory: Respiratory: Denies cough and Denies dyspnea Gastrointestinal: Gastrointestinal: Denies abdominal pain, Denies nausea and Denies vomiting [facility] Past Medical History Medical History Appendix injury Removed Arthritis Atrial fibrillation Back pain Bursitis of elbow Colon polyp Decreased GFR Depression Elevated transaminase level GERD (gastroesophageal reflux disease) Hearing loss Hyperlipidemia Hypertension Lumbar stenosis Neck fracture Neck injury OAB (overactive bladder) Obesity Polyuria Tachycardia Type 2 diabetes mellitus Wears glasses Surgical History Surgical History H/O heart artery stent History of AAA (abdominal aortic aneurysm) repair History of appendectomy History of cholecystectomy History of colon surgery 2021, polyp removal Hx of endovascular stent graft for abdominal aortic aneurysm Abdominal aorta stent: Cordis Family History Family History Mother Diabetes mellitus Father Lung cancer Stomach cancer Grandparent Heart disease Cerebrovascular accident Sibling Brain tumor Brain bleed Other Alcoholism Renal failure Social History Social History Smoking packs per day: 1 Smoking cigarettes per day: 20.0 Years smoked: 60 Smoking pack-years: 60.00 Smoking status: Current every day smoker Tobacco type: cigarettes Smokeless tobacco user: chewing tobacco Alcohol intake: former Substance use: never Substance use type: does not use Lack of Transportation: No Lack of Food: Never True Current Housing: I Have Housing Concerned About Future Housing: No Difficulty Paying Gas/Electric Bills:
[2022-09-17] MEDS: MORPHINE SULFATE (*CRX) 4 MG/ML INJ IV PUSH (23:11)
[2022-09-17 23:50] LABS: Appearance Urine Clear (Clear); Bilirubin Urine Negative (Negative); Blood Urine Negative (Negative); Color Urine Yellow (Yellow); Glucose Urine UA 2+ mg/dL (Negative); Ketones Urine Negative (Negative); Leukocyte Esterase Ur Negative LEU/UL (Negative); Nitrate Urine Negative (Negative); Protein Urine 1+ mg/dL (Negative); Urobilinogen Urine 0.2 mg/dL (<2.0); pH Urine 5.5 (5.0-9.0)
[2022-09-17 23:51] LABS: Add Urine Microscopic? YES; RBC Urine 0-2 /hpf (0-2); Squamous Epithelial Cell Urine Rare /hpf (Few); WBC Urine 0-3 /hpf
[2022-09-18] VITALS (20 sets, daily range): BP systolic 138–163; BP diastolic 73–100; PULSE 78–98; RESP 17–18; TEMP 36.1–36.3; O2SAT 90–93; BMI 24.0
[2022-09-18] MEDS: HYDROmorphone HCL INJ (*CRX) 1 MG/ML SYR IV PUSH ×2 (02:31→06:10)
--- NOTE | 2022-09-18 03:49 | PC.NURSE ---
Report received from ALLISON Connors. Assumed care of patient at this time.
[2022-09-18 04:10] LABS: Influenza A QL RT-PCR Negative (Negative); Influenza B QL RT-PCR Negative (Negative); SARS-CoV-2 RNA PCR Negative
--- NOTE | 2022-09-18 05:54 | ADMGEN ---
This patient, Kieran Lau, was admitted to 3 [facility] Surg Room 307-01. Patient/family oriented to hospital policies and general routines including ID bracelet, bed and alarms, visiting hours, pain management, procedures, bathroom and other care routines, personal items, smoking policy, room service/diet, and visiting hours. Information on how to activate the Rapid Response Team has been discussed. Patient/Family are encouraged to report perceived risks to care and to ask questions if they do not understand what they are told or what they should do.
[2022-09-18] MEDS: oxyCODONE HCL (*CRX) 5 MG TAB IR PO (08:25)
[2022-09-18] MEDS: DOCUSATE SODIUM 100 MG CAPSULE PO ×2 (08:25→21:37)
--- NOTE | 2022-09-18 09:26 | PM.IMHP ---
H&P: HPI History of Present Illness Date/Time: 09/18/22 09:26 Chief Complaint: Back pain Narrative: 72yo male with AFib, DM and HTN here for back pain. Patient states his symptoms began 3-4 months ago. He was on was am PICC and developed diarrhea decreased appetite. This medication was stopped. Patient however continued to have poor appetite and has lost about 40-50 lb over this time period. He did have a colonoscopy in April 2022 which showed internal hemorrhoids and a rectal polyp that was removed. Pathology showing hyperplastic polyp. Around , he developed right hip pain that radiated to the right side of his back as well as down his right leg. He denies any numbness or tingling in his hands or feet. He does have diffuse weakness with the right lower extremity being worse. He has required the use of a cane over the past 3 weeks. No foot drop. He has heard popping in his joints. No urine incontinence. No saddle anesthesia. No stool incontinence. His last bowel movement was 5-6 days ago. The pain does wake him up at night. There has been no trauma. His symptoms have slowly worsened over this time period. He did notice occasional bright red blood per rectum about 3 weeks ago that resolved. He is having dark stools but does take Pepto-Bismol. He has been taking Tylenol but no NSAIDs. He is on an aspirin chronically for his medical conditions. He has a slight headache. This does not worsen with cough or Valsalva movements. His cough is nonproductive. Cough does cause some left lower quadrant pain. No fever, chills or night sweats. No odynophagia or dysphagia. No vision changes, blurry vision or double vision. No rash on his skin. He does have a history of skin cancer. He does state his voice is weak. No dysuria or hematuria. He has been having chest pain on average about once a week they describes as tight associated with coughing and was pleuritic. Symptoms better when he rests. Symptoms last about a minute. It is associated with shortness of breath but no nausea. Pain does not radiate. 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 Barba from [facility]. Patient has seen his primary care doctor. He had lumbar spine x-ray (09/05) showing bilateral L5 pars in to her articularis defects and mild right hip osteoarthritis. He is on antibiotics and a Medrol Dosepak. He also been on tramadol for his pain. He has not fallen. Patient is a smoker and continues to smoke. CT of the lung in May of this year for lung cancer screening showed no concerning findings. Patient had worsening back agent and thus presented to the emergency room for evaluation. In the emergency room, patient's blood pressure was 157/100 his pulse rate was 110. Influenza and COVID swabs were negative. Urinalysis showed 1+ protein and 2+ glucose. His AST, ALT and alk-phos levels were mildly elevated. Calcium was 10.5. BUN 38 and glucose 210 otherwise BMP was normal. White count was 17 K but CBC otherwise was normal. CT the brain showed old infarct in the right frontal lobe and extensive nonspecific cerebral white matter disease. Chest x-ray showed mediastinal lymphadenopathy consistent with metastatic disease. CT of the abdomen and pelvis shows liver masses and chest and abdominal lymphadenopathy consistent with metastatic disease. Liver biopsy was recommended. Patient was given morphine and Dilaudid. Oxycodone is available as needed. He has been started on Colace. He was admitted for further care with plans for liver biopsy. Oncology has been consulted. Review of Systems Review of Systems: All systems reviewed & are unremarkable except as noted in HPI and below PMFSH Past Medical History Medical History (Updated 09/18/22 @ 10:02 by Morales Pereyra MD) Appendix injury Removed Arthritis Atrial fibrillation Back pain Bursitis of elbow Colon polyp Decreased GFR Depression Elevated transaminase level
[2022-09-18] MEDS: PANTOPRAZOLE 40 MG TABLET PO (10:20)
[2022-09-18] MEDS: polyethylene glycoL 3350 17 GM POWD.PACK PO (10:20)
[2022-09-18 11:10] LABS: Carcinoembryonic Antigen 1.2 ng/mL (0.0-3.0); Prostate Specific Antigen 0.6 ng/mL (< OR = 4.0)
[2022-09-18 11:12] LABS: Hemoglobin A1C 9.5 % (<5.7)
[2022-09-18 11:45] LABS: Folic Acid 9.2 ng/mL (2.76->20)
[2022-09-18 11:57] LABS: Glucose Point of Care 332 mg/dl (65-105)
[2022-09-18] MEDS: HYDROmorphone HCL INJ (*CRX) 1 MG/ML SYR 0.5 MG IV PUSH ×3 (12:02→21:38)
[2022-09-18] MEDS: INSULIN ASPART (*BKC) 100 UNITS/ML SUB-Q (12:02)
[2022-09-18] MEDS: ONDANSETRON INJ 4 MG/2 ML VIAL IV PUSH (12:46)
[2022-09-18 16:29] LABS: Glucose Point of Care 198 mg/dl (65-105)
[2022-09-19] MEDS: HYDROmorphone HCL INJ (*CRX) 1 MG/ML SYR 0.5 MG IV PUSH ×3 (01:10→11:00)
[2022-09-19 06:00] VITALS: BP 142/75; PULSE 95; RESP 18; TEMP 35.8; O2SAT 90
[2022-09-19 06:51] LABS: Basophils Absolute Auto 0.1 K/mm3 (0.0-0.1); Basophils Percent Auto 0.3 % (0.2-1.2); Eosinophils Absolute Auto 0.5 K/mm3 (0-0.3); Hematocrit 43.3 % (42.0-52.0); Hemoglobin 13.5 g/dL (14.0-18.0); Immature Granulocyte Absolute 0.97 K/mm3 (0.00-0.031); Immature Granulocyte Percent A 6.1 % (0-0.5); Lymphocytes Absolute Auto 2.16 K/mm3 (0.9-3.2); Lymphocytes Percent Auto 13.6 % (18.3-44.2); Mean Corpuscular HGB Conc 31.2 g/dl (32-36); Mean Corpuscular Hemoglobin 29.7 pg (26-34); Mean Corpuscular Volume 95.2 fl (80-100); Monocytes Percent Auto 6.4 % (2.6-8.5); Neutrophils Absolute Auto 11.2 K/mm3 (1.3-6.7); Neutrophils Percent Auto 70.6 % (45.5-73.1); Nucleated Red Blood Cells Absolute Auto 0.1 K/mm3 (0.0-0.012); Nucleated Red Blood Cells Perc 0.3 % (0.0-0.2); Platelet Count Result 177 k/mm3 (150-375); Red Blood Count 4.55 M/mm3 (4.6-6.20); Red Cell Distribution Width 13.4 % (11.5-14.5); White Blood Count 15.9 K/mm3 (4.5-10.0)
[2022-09-19 07:08] LABS: Alanine Aminotransferase 85 U/L (6-50); Albumin Level 3.8 g/dL (3.5-5.1); Alkaline Phosphatase 252 U/L (38-126); Anion Gap 7 mmol/L (8-16); Aspartate Amino Transferase 181 U/L (17-59); Bilirubin,Total 0.8 mg/dL (0.2-1.3); Blood Urea Nitrogen 36 mg/dL (9-20); Calcium 10.5 mg/dL (8.4-10.2); Carbon Dioxide 26 mmol/L (22-30); Chloride 103 mmol/L (98-107); Estimated CRCL calculation 69 ml/min; Estimated Glomerular Filt Rate > 60; Glucose 171 mg/dL (65-110); Potassium 4.6 mmol/L (3.4-5.0); Sodium 136 mmol/L (137-145)
[2022-09-19 08:15] LABS: Hepatitis B Surface Antigen Negative (Negative)
[2022-09-19 08:21] LABS: HAV RESULT Negative (Negative); Hepatitis B Core IgM Result Negative (Negative)
[2022-09-19 08:24] LABS: Glucose Point of Care 188 mg/dl (65-105)
[2022-09-19 08:32] LABS: Hepatitis C Virus Antibody Negative (Negative)
[2022-09-19] MEDS: DOCUSATE SODIUM 100 MG CAPSULE PO (09:00)
[2022-09-19] MEDS: CHOLECALCIFEROL 1,000 UNITS TABLET 1000 UNITS PO (09:00)
[2022-09-19] MEDS: ATORVASTATIN 20 MG TABLET PO (09:00)
[2022-09-19] MEDS: ESCITALOPRAM OXALATE 10 MG TABLET 20 MG PO (09:00)
[2022-09-19] MEDS: lisinopriL 2.5 MG TABLET PO (09:01)
[2022-09-19] MEDS: PANTOPRAZOLE 40 MG TABLET PO (09:01)
[2022-09-19] MEDS: MIRABEGRON 25 MG ER TABLET PO (09:01)
[2022-09-19] MEDS: METOPROLOL SUCCINATE EXT REL 25 MG TABCR PO (09:01)
[2022-09-19] MEDS: traMADol HCL (*CRX) 50 MG TABLET PO ×2 (09:03→16:33)
[2022-09-19 09:21] LABS: INR 1.2; Prothrombin Time 14.4 Seconds (11.1-14.7)
[2022-09-19 09:22] LABS: Partial Thromboplastin Time 29.5 SECONDS (22.3-36.8)
[2022-09-19 09:47] VITALS: BMI 24.0
--- NOTE | 2022-09-19 11:58 | PC.NURSE ---
To Radiology per stretcher at 1155.
[2022-09-19 11:59] LABS: Glucose Point of Care 240 mg/dl (65-105)
[2022-09-19 14:00] VITALS: BP 109/69; PULSE 89; RESP 24; TEMP 36.2; O2SAT 90
--- NOTE | 2022-09-19 15:31 | PM.DS ---
DS: Admitting Diagnosis Discharge Date 09/19/22 Admitting Diagnosis Back pain DS: Discharge Diagnosis Discharge Diagnosis (1) Cancer, metastatic to liver: Code(s): C78.7 - Secondary malignant neoplasm of liver and intrahepatic bile duct Status: Acute (2) Back pain: Code(s): M54.9 - Dorsalgia, unspecified Status: Acute (3) Constipation: Code(s): K59.00 - Constipation, unspecified Status: Acute (4) Generalized weakness: Code(s): R53.1 - Weakness Status: Acute (5) Leukocytosis: Qualifiers: Leukocytosis type: unspecified Qualified Code(s): D72.829 - Elevated white blood cell count, unspecified Code(s): D72.829 - Elevated white blood cell count, unspecified Status: Acute (6) Elevated LFTs: Code(s): R79.89 - Other specified abnormal findings of blood chemistry Status: Acute (7) Bronchitis: Code(s): J40 - Bronchitis, not specified as acute or chronic Status: Acute (8) Chest pain: Code(s): R07.9 - Chest pain, unspecified Status: Acute (9) Type 2 diabetes mellitus: Code(s): E11.9 - Type 2 diabetes mellitus without complications Status: Acute (10) Hypertension: Qualifiers: Hypertension type: essential hypertension Qualified Code(s): I10 - Essential (primary) hypertension Code(s): I10 - Essential (primary) hypertension Status: Acute (11) Tobacco abuse: Code(s): Z72.0 - Tobacco use Status: Acute DS: Summary Hospital Course Reason for hospitalization: 72yo male with AFib, DM and HTN here for back pain. Please see H&P for details. Hospital Course: Pateint presented to the ED with complaints of back pain, weight loss. In the emergency room, patient's blood pressure was 157/100 his pulse rate was 110.? Influenza and COVID swabs were negative.? Urinalysis showed 1+ protein and 2+ glucose.? His AST, ALT and alk-phos levels were mildly elevated.? Calcium was 10.5.? BUN 38 and glucose 210 otherwise BMP was normal.? White count was 17 K but CBC otherwise was normal.? CT the brain showed old infarct in the right frontal lobe and extensive nonspecific cerebral white matter disease. Chest x-ray showed mediastinal lymphadenopathy consistent with metastatic disease.? CT of the abdomen and pelvis shows liver masses and chest and abdominal lymphadenopathy consistent with metastatic disease.? Liver biopsy was recommended.? Patient was given morphine and Dilaudid.? Oxycodone is available as needed.? He has been started on Colace and Miralax for constipation.? He was admitted to [facility] Medical-surgical unit. Oncology was consulted. CEA normal; CA 19-9 pending. No focal findings to suggest new CVA and suspect his diffuse weakness is more likely related to poor oral intake and untreated cancer. We added supplements. He has a history of atrial fibrillation but is not on anticoagulation except aspirin for unclear reasons. His elevated white count is probably related to the steroids that he was on on admission. This chest pain felt related to his bronchitis that is currently being treated. B12 and TSH normal. Elevated liver enzymes related to the liver masses. Right upper quadrant ultrasound showing liver masses and adenopathy but no evidence of obstruction. He was educated about the benefits of abstaining from tobacco use. He underwent liver biopsy without any immediate issues. Oncology did see the patient and will follow up with him in the clinic. He feels better. Pain improved. Passing flatus but no BMs. He feels ready for discharge. He overall did well and was able to be discharged on 09/19/22. Status at Discharge Cognitive/behavioral status at discharge: Stable Time Spent with Patient Time attestation: Total time spent providing and/or coordinating discharge services:36 minutes Time spent: Greater than 30 minutes Exam Narrative: AF 97.1 109/69 89 24 90% ra - HAIDER
[2022-09-19] MEDS: EMPAGLIFLOZIN 25 MG TABLET PO (16:33)
[2022-09-19] MEDS: polyethylene glycoL 3350 17 GM POWD.PACK PO (16:34)
--- NOTE | 2022-09-20 18:10 | PDONCCN ---
HPI - Date of Consult Date/Time: 09/20/22 18:10 Requesting Physician: Sukumar Pereyra MD Primary Care Provider: Hayden Spualding, DO - Consult Narrative Reason for consult: Liver mass Narrative: Kieran Lau is a 72 year old male with history of atrial fibrillation, diabetes and hypertension came into the hospital with back pain off and on for 3-4 months duration. He also complain of loss of appetite and weight loss. He has almost lost 40 lb weight in last 3-4 months duration. Patient had last colonoscopy in April 2022 showed internal hemorrhoids and rectal polyp. Polyp was benign. CT scan abdomen pelvis showed liver masses in chest and abdominal lymphadenopathy. Patient had liver biopsy performed on September 19 and pathology is pending. Liver mass was 2.3 cm in the left hepatic lobe. Labs showed normal CEA of 1.2 and PSA normal at 0.6. Review of Systems - Review of Systems All systems reviewed & are unremarkable except as noted in [facility] and [facility] Medical History: Medical History (Last Reviewed 09/18/22 @ 09:44 by Morales Pereyra MD) Appendix injury Removed Arthritis Atrial fibrillation Back pain Bursitis of elbow Colon polyp Decreased GFR Depression Elevated transaminase level GERD (gastroesophageal reflux disease) Hearing loss Hyperlipidemia Hypertension Lumbar stenosis Neck fracture Neck injury OAB (overactive bladder) Obesity Polyuria Tachycardia Type 2 diabetes mellitus Wears glasses Surgical History: Surgical History (Last Reviewed 09/18/22 @ 09:44 by Morales Pereyra MD) H/O heart artery stent patient denies coronary stent placement History of AAA (abdominal aortic aneurysm) repair History of appendectomy History of cholecystectomy History of colon surgery 2021, polyp removal Hx of endovascular stent graft for abdominal aortic aneurysm Abdominal aorta stent: Cordis Family History: Family History (Last Reviewed 09/18/22 @ 09:44 by Morales Pereyra MD) Mother Diabetes mellitus Father Lung cancer Stomach cancer Grandparent Heart disease Cerebrovascular accident Sibling Brain tumor Brain bleed Other Alcoholism Renal failure - Social History Social History: Social History (Last Updated 09/18/22 @ 09:47 by Morales Pereyra MD) Alcohol Use: Alcohol intake: former Substance Use: Substance use: never Substance use type: does not use Others: Spiritual care concerns: No Smoking Status: Smoking status: Current every day smoker Tobacco type: cigarettes Smokeless tobacco user: chewing tobacco Smoking Pack-years: Smoking packs per day: 1 Smoking cigarettes per day: 20.0 Years smoked: 60 Smoking pack-years: 60.00 Social Determinants of Health: Has the Lack of Transportation Kept You From Medical Appointments or From Getting Medications?: No Within the Past 12 Months, Were You Worried Whether Your Food Would Run Out Before You Got Money to Buy More?: Never True What is Your Housing Situation Today?: I Have Housing Are You Worried That in the Next 2 Months, You May Not Have Your Own Housing to Live In?: No Do You Have Trouble Paying Your Heating Or Electricity Bill?: No Do You Have Trouble Paying For Medicines?: No Are You Currently Unemployed and Looking for Work?: No Highest Level of Education Completed: High School Diploma/GED Do You Have Trouble With Childcare or the Care of a Family Member?: No Exam - Exam HEENT: EOMI, PERRLA, mucous membranes moist and pink Neck: supple. No: JVD Lungs: clear to auscultation, normal air movement Heart: no murmurs, gallops, or rubs, regular rhythm, regular rate Abdomen: abdomen soft, non-distended, tender Extremities: normal pulses Integumentary: no abnormalities Neurological: normal speech Psychological: mental status NL, mood NL - Lab Results Laboratory Last Values WBC 15.9 K/mm3 (4.5-10.0) H
[2022-09-21 19:19] LABS: CA 19-9 24 U/mL (<34)
--- NOTE | 2022-09-24 13:36 | PC.NURSE ---
CA 19-9 is WN at [address] Dr[address] Roddy bell.
== END 2022-09-19 17:00 | disposition home or self-care (01) ==
LOC: ANHED 09-18 04:09 → ANH3MEDSUR 09-19 15:47
PROVIDERS: Internal Medicine; Admitting Provider Internal Medicine; Emergency Provider Emergency Medicine; PCP Internal Medicine; Visit Provider Internal Medicine
DX: C78.7 Secondary malignant neoplasm of liver and intrahepatic bile duct (principal); M54.9 Dorsalgia, unspecified; K59.00 Constipation, unspecified; R53.1 Weakness; D72.829 Elevated white blood cell count, unspecified; R79.89 Other specified abnormal findings of blood chemistry; J40 Bronchitis, not specified as acute or chronic; R07.9 Chest pain, unspecified; E11.9 Type 2 diabetes mellitus without complications; I10 Essential (primary) hypertension; R19.7 Diarrhea, unspecified; M19.90 Unspecified osteoarthritis, unspecified site; M48.061 Spinal stenosis, lumbar region without neurogenic claudication; M25.551 Pain in right hip; R10.9 Unspecified abdominal pain; R59.0 Localized enlarged lymph nodes; I48.91 Unspecified atrial fibrillation; F32.A Depression, unspecified; N40.0 Benign prostatic hyperplasia without lower urinary tract symptoms; Z20.822 Contact with and (suspected) exposure to COVID-19; K21.9 Gastro-esophageal reflux disease without esophagitis; R11.2 Nausea with vomiting, unspecified; H91.90 Unspecified hearing loss, unspecified ear; E78.5 Hyperlipidemia, unspecified; R16.0 Hepatomegaly, not elsewhere classified; N32.81 Overactive bladder; E66.9 Obesity, unspecified; Z68.24 Body mass index [BMI] 24.0-24.9, adult; R00.1 Bradycardia, unspecified; R90.82 White matter disease, unspecified; K64.8 Other hemorrhoids; R51.9 Headache, unspecified; F17.210 Nicotine dependence, cigarettes, uncomplicated; Z79.891 Long term (current) use of opiate analgesic; Z79.82 Long term (current) use of aspirin; Z79.899 Other long term (current) drug therapy; Z86.73 Personal history of transient ischemic attack (TIA), and cerebral infarction without residual deficits; Z82.49 Family history of ischemic heart disease and other diseases of the circulatory system; Z83.3 Family history of diabetes mellitus; Z81.1 Family history of alcohol abuse and dependence
CPT/HCPCS: 36415; 47000; 70450; 71046; 74177; 76705; 76942; 80053; 80074; 81001; 82378; 82607; 82746; 82948; 83036; 83690; 84153; 84443; 85025; 85610; 85730; 86301; 87636; 88307; 88342; 93005; 96374; 96375; 96376; 97161; 97165; 97530; 99285; A9270; G0378; J1170; J1815; J2270; J2405; Q9967

== ENCOUNTER 2022-09-24 04:45 | Emergency (ER) | payer MEDICARE, SELFPAY ==
--- NOTE | ~2022-09-24 | XR_ITS ---
EXAMINATION: XR chest 1V portable INDICATION: Weakness TECHNIQUE: Portable AP chest at 0742 hours COMPARISON: 09/17/2022 FINDINGS: The lungs are free of acute opacities. No pleural effusion or pneumothorax. The heart size is normal. Surgical changes are noted in the lower cervical spine. Calcified pulmonary nodules and ca lcified left hilar lymph nodes are consistent with old granulomatous disease. IMPRESSION: 1. No acute cardiopulmonary abnormality. Reviewed, dictated and finalized at location A. CE MANAGER RECEPTIONIST
--- NOTE | ~2022-09-24 | CT_ITS ---
EXAMINATION: CT lumbar spine wo con DATE: 09/24/2022 07:09 INDICATION: Low back pain TECHNIQUE: Computed tomography (CT) of the lumbar spine was performed without intravenous contrast. T he dose-length product (DLP) was 632.67 mGy-cm. Iterative reconstruction was used. COMPARISON: 09/18/2022, 02/17/2021 FINDINGS: There are 7 mm of unchanged anterolisthesis of L5 on S1. There are bilateral L5 pars defect s. Schmorl nodes are again noted at multiple levels. A Schmorl node of L3 is new since 02/17/2021 unch anged compared to the recent CT. The vertebral body heights are maintained. No acute fracture is iden tified. Mild posterior disc bulges are noted at multiple levels. An endovascular stent is present in the abdominal aorta. IMPRESSION: 1. Mild lumbar spondylosis. Schmorl node of L3, likely chronic. Reviewed, dictated and finalized at location A. OF MEN
[2022-09-24 04:54] VITALS: PULSE 100; RESP 19; TEMP 36.6; O2SAT 90
--- NOTE | 2022-09-24 05:09 | ECG_ITS ---
Measurements Intervals [place] Rate: 86 P: 164 VT: 165 QRS: 171 QRSD: 98 T: 124 QT: 352 QTc: 421 Interpretive Statements SINUS RHYTHM WITH OCCASIONAL VENTRICULAR PREMATURE COMPLEXES ARM LEADS REVERSED [INVERTED P AND QRS IN I] COMPARED TO ECG 09/17/2022 21:32:44 NO SIGNIFICANT CHANGES Electronically Signed On 09-24-2022 8:43:42 SOLAR PANEL TECHNICIAN by Naima Li M.D.
[2022-09-24 05:34] LABS: Hematocrit 39.5 % (42.0-52.0); Hemoglobin 13.2 g/dL (14.0-18.0); Mean Corpuscular HGB Conc 33.4 g/dl (32-36); Mean Corpuscular Hemoglobin 29.6 pg (26-34); Mean Corpuscular Volume 88.6 fl (80-100); Mean Platelet Volume 11.2 fl (7.4-10.4); Platelet Count Result 157 k/mm3 (150-375); Red Blood Count 4.46 M/mm3 (4.6-6.20); Red Cell Distribution Width 13.2 % (11.5-14.5); White Blood Count 15.1 K/mm3 (4.5-10.0)
[2022-09-24 06:11] LABS: Neutrophils Percent Manual 53 % (46-73); Total Cells Counted 100
[2022-09-24 06:12] LABS: Band Neutrophils Percent 3 % (0-6); Eosinophils Absolute Manual 1.05 K/mm3 (0.02-0.5); Eosinophils Percent Manual 7 % (0-4); Influenza A QL RT-PCR Negative (Negative); Influenza B QL RT-PCR Negative (Negative); Lymphocytes Absolute Manual 3.92 K/mm3 (1.1-4.5); Lymphocytes Percent Manual 26 % (18-44); Metamyelocytes Percent 2 %; Monocytes Percent Manual 2 % (3-9); Myelocytes Percent 7 %; Neutrophils Absolute Manual 8.45 K/mm3 (1.3-6.7); Nucleated Red Blood Cells 1 %; Platelet Estimate Adequate (Adequate); SARS-CoV-2 RNA PCR Negative; Schistocytes None Seen (NORMAL)
--- NOTE | 2022-09-24 06:44 | ED.GENADULT ---
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 Over the last week patient has been dealing with significant pain and has been having his pain regimen adjusted by his primary care physician. Brigette regimens included tramadol and oxycodone 5mg q.4 hours. Last night the pain became more severe and the patient was given multiple doses of his oxycodone with minimal relief. He was then brought to the emergency department for pain management. Patient is complaining of pain to his lower back that is worse with movement. Family notes that he has been having difficulty urinating lately. He has not had any episodes of bowel incontinence, and he denies saddle anesthesia or weakness to his lower extremities. Goal of today's visit is pain control and to discuss the possibility of hospice. <Fredo Duggan MD - Last Filed: 09/25/22 05:35> Related Data Home medications: Home Medications Medication Instructions Recorded Confirmed aspirin 81 mg tablet,delayed 81 mg PO DAILY 06/08/20 09/21/22 release (Adult Aspirin Regimen) icosapent ethyl 1 gram capsule 2 g PO BID 03/29/21 09/21/22 (Vascepa) lisinopril 2.5 mg tablet 2.5 mg PO DAILY 12/14/21 09/21/22 metoprolol succinate 25 mg 25 mg PO DAILY 12/14/21 09/21/22 tablet,extended release 24 hr cholecalciferol (vitamin D3) 25 25 mcg PO DAILY 03/08/22 09/21/22 mcg (1,000 unit) capsule <Fredo Duggan MD - Last Filed: 09/25/22 05:35> Allergies/adverse reactions: Allergies Allergy/AdvReac Type Severity Reaction Status Date / Time No Known Allergies Allergy Verified 09/05/22 11:36 <Fredo Duggan MD - Last Filed: 09/25/22 05:35> Review of Systems Review of Systems: CONSTITUTIONAL: Denies night sweats. EYES: No eye pain ENT: Denies rhinorrhea CARDIOVASCULAR: Denies palpitations RESPIRATORY: Denies hemoptysis GASTROINTESTINAL: Denies hematemesis GENITOURINARY: Denies hematuria. SKIN: Denies rash MUSCULOSKELETAL: Denies myalgia. NEUROLOGIC: Denies weakness. PSYCHIATRIC: Denies delusions <Fredo Duggan MD - Last Filed: 09/25/22 05:35> [facility] Past Medical History Medical History: Medical History Appendix injury Removed Arthritis Atrial fibrillation Back pain Bursitis of elbow Colon polyp Decreased GFR Depression Elevated transaminase level GERD (gastroesophageal reflux disease) Hearing loss Hyperlipidemia Hypertension Lumbar stenosis Neck fracture Neck injury OAB (overactive bladder) Obesity Polyuria Tachycardia Type 2 diabetes mellitus Wears glasses <Fredo Duggan MD - Last Filed: 09/25/22 05:35> Surgical History Surgical History: Surgical History H/O heart artery stent patient denies coronary stent placement History of AAA (abdominal aortic aneurysm) repair History of appendectomy History of cholecystectomy History of colon surgery 2021, polyp removal Hx of endovascular stent graft for abdominal aortic aneurysm Abdominal aorta stent: Cordis <Fredo Duggan MD - Last Filed: 09/25/22 05:35> Family History Family History: Family History Mother Diabetes mellitus Father Lung cancer Stomach cancer Grandparent Heart disease Cerebrovascular accident Sibling Brain tumor Brain bleed Other Alcoholism Renal failure <Fredo Duggan MD - Last Filed: 09/25/22 05:35> Social History Social History: Social History (Reviewed 1
[2022-09-24 07:20] LABS: Add Urine Microscopic? YES; Appearance Urine Clear (Clear); Bilirubin Urine Negative (Negative); Blood Urine Negative (Negative); Color Urine Light Yellow (Yellow); Glucose Urine UA 2+ mg/dL (Negative); Ketones Urine Negative (Negative); Leukocyte Esterase Ur Negative LEU/UL (Negative); Nitrate Urine Negative (Negative); Protein Urine Negative (Negative); Specific Grav Ur 1.025 (1.001-1.035); Urobilinogen Urine 0.2 mg/dL (<2.0)
[2022-09-24] MEDS: HYDROmorphone HCL INJ (*CRX) 1 MG/ML SYR 0.5 MG IV PUSH (07:21)
[2022-09-24 07:26] LABS: RBC Urine 0-2 /hpf (0-2); Squamous Epithelial Cell Urine Rare /hpf (Few); WBC Urine 0-3 /hpf
[2022-09-24 07:33] VITALS: BP 129/81; PULSE 89; RESP 17; O2SAT 95
[2022-09-24 07:53] LABS: Alanine Aminotransferase 103 U/L (6-50); Albumin Level 3.7 g/dL (3.5-5.1); Alkaline Phosphatase 470 U/L (38-126); Anion Gap 8 mmol/L (8-16); Aspartate Amino Transferase 248 U/L (17-59); Blood Urea Nitrogen 50 mg/dL (9-20); Calcium 12.5 mg/dL (8.4-10.2); Carbon Dioxide 24 mmol/L (22-30); Chloride 105 mmol/L (98-107); Estimated CRCL calculation 75 ml/min; Estimated Glomerular Filt Rate 54; Glucose 142 mg/dL (65-110); Potassium 4.6 mmol/L (3.4-5.0); Sodium 137 mmol/L (137-145)
[2022-09-24] MEDS: HYDROmorphone HCL INJ (*CRX) 1 MG/ML SYR IV PUSH (09:27)
[2022-09-24 09:51] VITALS: BP 149/61; PULSE 91; RESP 15; O2SAT 97
[2022-09-24 11:03] VITALS: BP 110/71; PULSE 93; RESP 20; O2SAT 98
== END 2022-09-24 11:32 | disposition home or self-care (01) ==
PROVIDERS: Emergency Provider Emergency Medicine; PCP Internal Medicine
DX: M54.50 Low back pain, unspecified (principal); C22.8 Malignant neoplasm of liver, primary, unspecified as to type; C79.51 Secondary malignant neoplasm of bone; Z20.822 Contact with and (suspected) exposure to COVID-19; I48.91 Unspecified atrial fibrillation; E11.9 Type 2 diabetes mellitus without complications; E78.5 Hyperlipidemia, unspecified; N32.81 Overactive bladder; K21.9 Gastro-esophageal reflux disease without esophagitis; E66.9 Obesity, unspecified; Z68.43 Body mass index [BMI] 50.0-59.9, adult; M19.90 Unspecified osteoarthritis, unspecified site; F17.210 Nicotine dependence, cigarettes, uncomplicated; F17.220 Nicotine dependence, chewing tobacco, uncomplicated; Z95.5 Presence of coronary angioplasty implant and graft; Z86.010 Personal history of colon polyps; Z79.82 Long term (current) use of aspirin; Z79.84 Long term (current) use of oral hypoglycemic drugs; Z79.85 Long-term (current) use of injectable non-insulin antidiabetic drugs; M51.46 Schmorl's nodes, lumbar region; M47.816 Spondylosis without myelopathy or radiculopathy, lumbar region; I49.3 Ventricular premature depolarization
CPT/HCPCS: 36415; 71045; 72131; 80053; 81001; 85025; 87636; 93005; 96374; 96376; 99284; J1170